=== PATIENT | male | born 1990 | race Caucasian/White ===

== ENCOUNTER → 2016-02-25 | Outpatient (CLI) | payer BC ==
--- NOTE | 2016-02-25 23:53 | MR ---
EXAMINATION TYPE: MR knee LT wo con DATE OF EXAM: 02/25/2016 10:16 PM COMPARISON: NONE HISTORY: TECHNIQUE: Multiplanar, multisequence imaging of the left knee is performed without IV contrast. Findings The anterior and posterior cruciate ligaments are intact. There is a small knee joint effusion. The m edial meniscus is intact. Lateral meniscus is intact. The collateral ligaments are intact. I see no e vidence for fracture. There is no evidence of bony destructive process. IMPRESSION: Small knee joint effusion. Otherwise negative exam. No evidence of ligamentous or meniscal tear.
== END | disposition home or self-care (01) ==
LOC: RADMRIMAIN 21:39
PROVIDERS: ATTEND Family Medicine
DX: M25.462 Effusion, left knee (principal)

== ENCOUNTER 2016-08-30 21:16 | Emergency (ER) | payer BC ==
[2016-08-30] MEDS ORDERED: LORazepam 1 MG TAB PO STA (21:34)
--- NOTE | 2016-08-30 21:44 | ED ---
General Adult HPI - General Chief complaint: Anxiety Stated complaint: Anxiety/MY Time Seen by Provider: 08/30/16 21:22 Source: patient Mode of arrival: wheelchair Limitations: no limitations - History of Present Illness Initial comments: Patient is a 26-year-old male who presents to the emergency department for evaluation of panic attack. Patient states that yesterday he experienced a in the immediate family, he states that it has been a very stressful 2 weeks leading up to this . Patient states he was sleeping this evening, he overslept and was very anxious when he woke up. He then got any small argument with his and began feeling very panicked. Patient states her breathing rate very rapidly and could not slow down his breathing and then felt his heart beating very quickly. Patient states he feels like everything that's been going on his just built up and he can handle it. Patient's brought him to the emergency department for further evaluation. Does state he has had panic attacks in the past but has been able to manage them with breathing. He has never been formally diagnosed with an anxiety disorder. He has never had a psychiatric hospitalization or been on any psychiatric occasions. Patient denies any drug or alcohol use. He denies any cardiac history or family history of early cardiac disease. Denies any history of blood clots, DVT or PE or family history of the same. - Related Data Home Medications Medication Instructions Recorded Confirmed No Known Home Medications [No 08/30/16 08/30/16 Known Home Medications] Allergies Allergy/AdvReac Type Severity Reaction Status Date / Time No Known Allergies Allergy Verified 08/30/16 21:38 Review of Systems ROS Statement: Those systems with pertinent positive or pertinent negative responses have been documented in the HPI. ROS Other: All systems not noted in ROS Statement are negative. Constitutional: Denies: fever, chills Eyes: Denies: vision change Respiratory: Reports: dyspnea, other Cardiovascular: Reports: palpitations. Denies: chest pain Endocrine: Denies: fatigue Gastrointestinal: Reports: nausea. Denies: abdominal pain Musculoskeletal: Denies: back pain Skin: Denies: lesions Neurological: Denies: headache Psychiatric: Reports: anxiety. Denies: auditory hallucinations, visual hallucinations, homicidal thoughts, suicidal thoughts Hematological/Lymphatic: Denies: easy bleeding, easy bruising Past Medical History Past Medical History: No Reported History Additional Past Medical History / Comment(s): abdominal cramping, blood in stool 2 weeks ago, occ loose stools History of Any Multi-Drug Resistant Organisms: None Reported Past Surgical History: No Surgical Hx Reported Past Anesthesia/Blood Transfusion Reactions: No Reported Reaction Past Psychological History: No Psychological Hx Reported Smoking Status: Never smoker - Past Family History Mother Family Medical History: No Reported History General Exam Limitations: no limitations General appearance: alert, anxious Head exam: Present: atraumatic, normocephalic, normal inspection Eye exam: Present: normal appearance, PERRL, EOMI. Absent: scleral icterus, conjunctival injection, periorbital swelling ENT exam: Present: normal exam, mucous membranes moist Neck exam: Present: normal inspection. Absent: tenderness, meningismus, lymphadenopathy Respiratory exam: Present: normal lung sounds bilaterally. Absent: respiratory distress, wheezes, rales, rhonchi, stridor Cardiovascular Exam: Present: regular rate, normal rhythm, normal heart sounds. Absent: systolic murmur, diastolic murmur, rubs, gallop, clicks GI/Abdominal exam: Present: soft, normal bowel sounds. Absent: distended, tenderness, guarding, rebound, rigid Rectal exam: Present: deferred Extremities exam: Present: normal inspection, full ROM, normal capillary refill. Absent: tenderness, pedal edema, joint swelling, calf tenderness Back exam: Present: normal inspection Neurological exam: Present: alert, oriented X3, CN II-XII intact Psychiatric exam: Present: anxious Skin exam: Present: warm, dry, intact, normal color. Absent: rash Course Vital Signs 08/30/16 21:17 Temperature 97.5 F L Pulse Rate 139 H Respiratory 34 H Rate Blood Pressure 148/106 O2 Sat by Pulse 100 Oximetry - Reevaluation(s) Reevaluation #1: 08/30/16 22:38 Patient reevaluated, heart rate noted to be 92-100 while sleeping. I woke the patient and asked him how he is feeling patient's heart rate then increased to 122. I advised the patient to continue slow deep breathing I will reassess. Reevaluation #2: 08/30/16 23:36 She was again reevaluated, patient was noted to be sleeping his heart rate was 90. at bedside states the patient's been sleeping comfortably. Upon hearing or speaking the patient woke and reportedly felt well, denied any chest pain or shortness of breath. While talking was noted that his heart rate increased to 103 but the patient stated that he felt much better. I offered the patient a further workup for his tachycardia, however patient declined and stated that he felt comfortable being discharged home. Medical Decision Making - Medical Decision Making Patient was seen and evaluated, history was obtained from the patient and his Vital signs were reviewed, patient is tachycardic and tachypneic upon initial evaluation Patient's medical history and history of present illness are suggestive of an acute stress reaction or panic attack During my initial evaluation I practiced breathing techniques with the patient to slow his breathing, it was noted the patient's heart rate decreased from the 130s to the 110s with these wreathing techniques. I advised the patient to continue slow controlled breathing, I encouraged his to assist him and counting to maintain slow breathing. Advised patient will give him a oral dose of anxiolytic but that he shall not drive home tonight, it can make him drowsy and he has never taken it before. Patient was reevaluated after by mouth Ativan. Patient was sleeping comfortably in the bed. Upon waking patient again developed tachycardia. Advised the patient we will continue to monitor Patient was reevaluated and noted to have a heart rate of 90 while sleeping. Patient's states he's been sleeping comfortably and she feels is likely ready to go home. I woke the patient states he is feeling much better, denies any chest pain, palpitations, shortness of breath. I offer the patient a further workup for his tachycardia however he states he feels this was all related to his anxiety and he feels comfortable going home now. I advised the patient he should not work tonight as he took Ativan which can cause drowsiness. Patient is agreeable. Questions pertaining to care were answered to the best of my ability and patient was discharged home in stable condition. Disposition Clinical Impression: Acute anxiety, Hyperventilation, Panic attack, Acute stress reaction Disposition: HOME SELF-CARE Condition: Good Instructions: Generalized Anxiety Disorder (ED) Referrals: Ryan Dahl MD [Primary Care Provider] - 1-2 days
[2016-08-30 23:39] VITALS: BP 163/84; PULSE 117; RESP 20; TEMP 98
== END 2016-08-30 23:46 | disposition home or self-care (01) ==
LOC: EC 21:16
DX: F41.0 Panic disorder [episodic paroxysmal anxiety] (principal); F43.0 Acute stress reaction; R06.4 Hyperventilation
CPT/HCPCS: 99283

== ENCOUNTER 2016-11-17 11:14 | Inpatient (IN) | payer BC, OTHER ==
[2016-11-17] MEDS ORDERED: SODIUM CHLORIDE 0.9% 2,000 ML IV STA (11:25)
[2016-11-17] MEDS ORDERED: ONDANSETRON 4 MG/2 ML VIAL IVP STA ×2 (11:25→12:31)
[2016-11-17] MEDS ORDERED: MORPHINE SULFATE 4 MG/ML SYRINGE IVP STA (11:32)
[2016-11-17] MEDS ORDERED: HYDROmorphone 1 MG/ML 1 ML SYRINGE IVP STA (11:54)
[2016-11-17 11:57] LABS: Basophils # (A) 0.1 k/uL (0-0.2); Basophils % (A) 0 %; CH 30.7; CHCM 33.6; Eosinophils # (A) 0.1 k/uL (0-0.7); Eosinophils % (A) 1 %; HCT 39.8 % (39.0-53.0); HGB 13.2 gm/dL (13.0-17.5); Luc # (Auto) 0.19; Luc % (Auto) 2; Lymphocytes # (A) 1.8 k/uL (1.0-4.8); Lymphocytes % (A) 15 %; MCH 30.4 pg (25.0-35.0); MCHC 33.2 g/dL (31.0-37.0); MCV 91.7 fL (80.0-100.0); Mean Platelet Volume 7.2; Monocytes # (A) 0.5 k/uL (0-1.0); Monocytes % (A) 4 %; Neutrophils # (A) 9.4 k/uL (1.3-7.7); Neutrophils % (A) 79 %; RBC 4.34 m/uL (4.30-5.90); RDW 12.4 % (11.5-15.5); WBC (Perox) 12.38
--- NOTE | 2016-11-17 12:06 | ED ---
Abdominal Pain HPI - General Chief Complaint: Abdominal Pain Stated Complaint: ABDOMINAL PAIN, VOMITINGW Time Seen by Provider: 11/17/16 11:21 Source: patient, RN notes reviewed Mode of arrival: wheelchair Limitations: no limitations - History of Present Illness Initial Comments: 26-year-old male presents emergency Department with chief complaint of abdominal pain. Patient states that he has been nausea and vomiting with dry heaving all morning. Patient states that he had some onset of left-sided abdominal pain. Patient states probably something snapped. Patient states his pain is nothing is ever experienced in the past. Patient denies any fever, chills, headache or dizziness or chest pain or shortness of breath. Patient states that he's had no prior abdominal surgeries. - Related Data Home Medications Medication Instructions Recorded Confirmed Multivitamins, Thera [Multivitamin 1 tab PO DAILY 11/17/16 11/17/16 (formulary)] Allergies Allergy/AdvReac Type Severity Reaction Status Date / Time No Known Allergies Allergy Verified 11/17/16 11:29 Review of Systems ROS Statement: Those systems with pertinent positive or pertinent negative responses have been documented in the HPI. ROS Other: All systems not noted in ROS Statement are negative. Past Medical History Past Medical History: No Reported History Additional Past Medical History / Comment(s): abdominal cramping, blood in stool 2 weeks ago, occ loose stools History of Any Multi-Drug Resistant Organisms: None Reported Past Surgical History: No Surgical Hx Reported Past Anesthesia/Blood Transfusion Reactions: No Reported Reaction Past Psychological History: No Psychological Hx Reported Smoking Status: Never smoker Past Alcohol Use History: Occasional Past Drug Use History: Unable to Obtain - Past Family History Mother Family Medical History: No Reported History General Exam Limitations: no limitations General appearance: alert, in no apparent distress Head exam: Present: atraumatic, normocephalic, normal inspection Respiratory exam: Present: normal lung sounds bilaterally. Absent: respiratory distress, wheezes, rales, rhonchi, stridor Cardiovascular Exam: Present: regular rate, normal rhythm, normal heart sounds. Absent: systolic murmur, diastolic murmur, rubs, gallop, clicks GI/Abdominal exam: Present: soft, tenderness (moderate left sided abdominal tenderness), normal bowel sounds. Absent: distended, guarding, rebound, rigid Skin exam: Present: warm, dry Course Vital Signs 1011/17/16 11/17/16 11:15 12:01 12:32 Temperature 97.2 F L Pulse Rate 114 H 110 H 121 H Respiratory 18 28 H 20 Rate Blood Pressure 144/90 122/63 123/87 O2 Sat by Pulse 100 100 98 Oximetry 11/17/16 13:56 Temperature Pulse Rate 112 H Respiratory 19 Rate Blood Pressure 128/79 O2 Sat by Pulse 96 Oximetry Medical Decision Making - Medical Decision Making 26-year-old male Presented from for Abdominal Pain. Patient's Pain Is Out Of Proportion He Is Slightly Improved after Ativan and Dilaudid and Morphine. Patient's Lactic Is 8.5. Concerns for Possible Ischemic Bowel, CT Shows Pancolitis in Acute Appendicitis. Patient Will Be Given a Third Liter of Fluid Started on a Maintenance Also 100 Per Hour along with Unasyn. Dr. Johnson Surgeon On-Call for Surgical Was Contacted. - Lab Data Result diagrams: 11/17/16 11:36 11/17/16 11:36 Lab Results 11/17/16 11/17/16 11/17/16 Range/Units 11:36 11:36 12:25 WBC 12.0 H (3.8-10.6) k/uL RBC 4.34 (4.30-5.90) m/uL Hgb 13.2 (13.0-17.5) gm/dL Hct 39.8 (39.0-53.0) % MCV 91.7 (80.0-100.0) fL MCH 30.4 (25.0-35.0) pg MCHC 33.2 (31.0-37.0) g/dL RDW 12.4 (11.5-15.5) % Plt Count 325 (150-450) k/uL Neutrophils % 79 % Lymphocytes % 15 % Monocytes % 4 % Eosinophils % 1 % Basophils % 0 % Neutrophils # 9.4 H (1.3-7.7) k/uL Lymphocytes # 1.8 (1.0-4.8) k/uL Monocytes # 0.5 (0-1.0) k/uL Eosinophils # 0.1 (0-0.7) k/uL Basophils # 0.1 (0-0.2) k/uL Sodium 145 (137-145) mmol/L Potassium 4.0 (3.5-5.1) mmol/L Chloride 106 (98-107) mmol/L Carbon Dioxide 20 L (22-30) mmol/L Anion Gap 19 mmol/L BUN 8 L (9-20) mg/dL Creatinine 0.65 L (0.66-1.25) mg/dL Est GFR (MDRD) Af Amer >60 (>60 ml/min/1.73 sqM) Est GFR (MDRD) Non-Af >60 (>60 ml/min/1.73 sqM) Glucose 150 H (74-99) mg/dL Plasma Lactic Acid Omar (0.7-2.0) mmol/L Calcium 10.8 H (8.4-10.2) mg/dL Total Bilirubin 0.4 (0.2-1.3) mg/dL AST 30 (17-59) U/L ALT 39 (21-72) U/L Alkaline Phosphatase 58 (38-126) U/L Total Protein 7.6 (6.3-8.2) g/dL Albumin 5.1 H (3.5-5.0) g/dL Amylase 47 (30-110) U/L Lipase 94 (23-300) U/L Urine Color Yellow Urine Appearance Turbid (Clear) Urine pH 7.5 (5.0-8.0) Ur Specific [place] 1.017 (1.001-1.035) Urine Protein Negative (Negative) Urine Glucose (UA) Negative (Negative) Urine Ketones 1+ H (Negative) Urine Blood Negative (Negative) Urine Nitrite Negative (Negative) Urine Bilirubin Negative (Negative) Urine Urobilinogen <2.0 (<2.0) mg/dL Ur Leukocyte Esterase Negative (Negative) Amorphous Sediment Occasional H (None) /hpf Urine Mucus Rare H (None) /hpf 11/17/16 Range/Units 13:15 WBC (3.8-10.6) k/uL RBC (4.30-5.90) m/uL Hgb (13.0-17.5) gm/dL Hct (39.0-53.0) % MCV (80.0-100.0) fL MCH (25.0-35.0) pg MCHC (31.0-37.0) g/dL RDW (11.5-15.5) % Plt Count (150-450) k/uL Neutrophils % % Lymphocytes % % Monocytes % % Eosinophils % % Basophils % % Neutrophils # (1.3-7.7) k/uL Lymphocytes # (1.0-4.8) k/uL Monocytes # (0-1.0) k/uL Eosinophils # (0-0.7) k/uL Basophils # (0-0.2) k/uL Sodium (137-145) mmol/L Potassium (3.5-5.1) mmol/L Chloride (98-107) mmol/L Carbon Dioxide (22-30) mmol/L Anion Gap mmol/L BUN (9-20) mg/dL Creatinine (0.66-1.25) mg/dL Est GFR (MDRD) Af Amer (>60 ml/min/1.73 sqM) Est GFR (MDRD) Non-Af (>60 ml/min/1.73 sqM) Glucose (74-99) mg/dL Plasma Lactic Acid Omar 8.5 H* (0.7-2.0) mmol/L Calcium (8.4-10.2) mg/dL Total Bilirubin (0.2-1.3) mg/dL AST (17-59) U/L ALT (21-72) U/L Alkaline Phosphatase (38-126) U/L Total Protein (6.3-8.2) g/dL Albumin (3.5-5.0) g/dL Amylase (30-110) U/L Lipase (23-300) U/L Urine Color Urine Appearance (Clear) Urine pH (5.0-8.0) Ur Specific [place] (1.001-1.035) Urine Protein (Negative) Urine Glucose (UA) (Negative) Urine Ketones (Negative) Urine Blood (Negative) Urine Nitrite (Negative) Urine Bilirubin (Negative) Urine Urobilinogen (<2.0) mg/dL Ur Leukocyte Esterase (Negative) Amorphous Sediment (None) /hpf Urine Mucus (None) /hpf Disposition Clinical Impression: Pancolitis, Appendicitis, Lactic acidosis Disposition: ADMITTED IP TO THIS [facility] Condition: Fair Referrals: Ryan Dahl MD [Primary Care Provider] - 1-2 days
[2016-11-17 12:16] LABS: AST 30 U/L (17-59); Alkaline Phosphatase 58 U/L (38-126); Amylase 47 U/L (30-110); Anion Gap 19 mmol/L; Blood Urea Nitrogen 8 mg/dL (9-20); Calcium 10.8 mg/dL (8.4-10.2); Carbon Dioxide 20 mmol/L (22-30); Chloride 106 mmol/L (98-107); Glucose 150 mg/dL (74-99); Non-African American GFR(MDRD) >60 (>60 ml/min/1.73 sqM); Sodium 145 mmol/L (137-145); Total Bilirubin 0.4 mg/dL (0.2-1.3); Total Protein 7.6 g/dL (6.3-8.2)
[2016-11-17 12:21] LABS: ALT 39 U/L (21-72)
--- NOTE | 2016-11-17 12:22 | XR ---
EXAMINATION TYPE: XR KUB DATE OF EXAM: 11/17/2016 12:10 PM CLINICAL HISTORY: Left lower quadrant pain and nausea. TECHNIQUE: Single upright abdominal radiograph was obtained. COMPARISON: None. FINDINGS: Scattered gas is seen in non-distended small bowel loops. No differential air-fluid levels are seen. Few loops of nonenlarged small bowel better gaseous filled are localized to the left lower quadrant. Gas and fecal material is seen in non-distended colon. There is no visceromegaly, pneumoper itoneum, or abnormal calcification appreciated. The lung bases are clear and the osseous structures a re intact. IMPRESSION: Nonobstructive bowel gas pattern with few loops of air-filled nondilated small bowel in t he left lower quadrant.
[2016-11-17] MEDS ORDERED: RX INFO: IV CONTRAST WAS GIVEN 1 EACH MISC MISCELLANE PRN (12:31)
[2016-11-17] MEDS ORDERED: LORazepam 2 MG/ML INJ IV STA (12:42)
[2016-11-17 13:01] LABS: Amorphous Sediment,Urine Occasional /hpf; Appearance,Urine Turbid (Clear); Bilirubin,Urine Negative (Negative); Glucose,Urine (UA) Negative (Negative); Ketones,Urine 1+ (Negative); Leukocyte Esterase,Urine Negative (Negative); Mucus,Urine Rare /hpf; Nitrite,Urine Negative (Negative); PH, Urine 7.5 (5.0-8.0); Particle Count 44834; Protein,Urine Negative (Negative); Specific Gravity,Urine 1.017 (1.001-1.035); UA Billing (MACRO vs. MICRO) MICRO; Urobilinogen,Urine <2.0 mg/dL (<2.0)
--- NOTE | 2016-11-17 13:48 | CT ---
EXAMINATION TYPE: CT abdomen pelvis w con DATE OF EXAM: 11/17/2016 COMPARISON: NONE HISTORY: CT DLP: mGycm Automated exposure control for dose reduction was used. TECHNIQUE: Helical acquisition of images was performed from the lung bases through the pelvis. CONTRAST: Performed and , patient injected with mL of . FINDINGS: LUNG BASES: No significant abnormality is appreciated. LIVER/GB: No significant abnormality is appreciated. PANCREAS: No significant abnormality is seen. SPLEEN: No significant abnormality is seen. ADRENALS: No significant abnormality is seen. KIDNEYS: No significant abnormality is seen. FREE AIR: No free air is visualized. RETROPERITONEAL ADENOPATHY: None visualized REPRODUCTIVE ORGANS: No significant abnormality is seen URINARY BLADDER: No significant abnormality is seen. PELVIC ADENOPATHY: None visualized. OSSEOUS STRUCTURES: No significant abnormality is seen. BOWEL: What appears to be the appendix is dilated, hyperemic, and enlarged within its mid and distal portions although the proximal portion is not enlarged and air-filled. This is seen on coronal serie s 5 image 31 connecting to the proximal appendix on series 5 image 33 and 32. This is also seen on ax ial series 3 image 51 through 59 within the right lower quadrant. Additionally although the large bow el is nondistended there are mild pericolonic inflammatory fat stranding changes and evidence of diff use chronic wall thickening with lack of haustral markings, lack of stool, and lack of air favoring s uperimposed mild pancolitis involving all but portions of the sigmoid colon. Findings could represent infectious or inflammatory bowel disease. No evidence of periappendiceal abscess or free fluid is se en. No pneumoperitoneum is present. IMPRESSION: FINDINGS FAVORING ACUTE APPENDICITIS SUPERIMPOSED UPON PANCOLITIS. WHAT IS THOUGHT TO BE OF THE APPEN ALLEGRA APPEARS TO BE A BLIND-ENDING LOOP RATHER THAN THE TERMINAL ILEUM. ALTERNATIVELY THIS COULD REPRES ENT TERMINAL ILEITIS AND PANCOLITIS IN THE SETTING OF INFLAMMATORY BOWEL DISEASE. CORRELATE WITH PHYS ICAL EXAM AND CLINICAL SYMPTOMATOLOGY. SHORT-TERM FOLLOW-UP COULD ALSO BE PERFORMED IF CLINICAL EXAMI NATION IS A CLINICAL. NO CURRENT PNEUMOPERITONEUM OR RIGHT LOWER QUADRANT ABSCESS. Findings discussed with Dr. Mora by Dr. Price at 1340 ON 11/17/2016.
[2016-11-17] MEDS ORDERED: SODIUM CHLORIDE 0.9% 1,000 ML IV ONE (13:55)
[2016-11-17] MEDS ORDERED: AMPICILLIN-SULBACTAM 3 GM in SODIUM CHLORIDE 0.9% 100 ML IVPB STA (13:58)
[2016-11-17] MEDS ORDERED: SODIUM CHLORIDE 0.9% 1,000 ML IV SCH (14:00)
[2016-11-17] MEDS ORDERED: LORazepam 2 MG/ML INJ IV PRN (14:02)
[2016-11-17] MEDS ORDERED: NALOXONE 0.4 MG/ML 1 ML VIAL IV PRN (14:02)
[2016-11-17] MEDS ORDERED: HYDROmorphone 1 MG/ML 1 ML SYRINGE IVP PRN (14:02)
[2016-11-17] MEDS ORDERED: ONDANSETRON 4 MG/2 ML VIAL IVP PRN (14:02)
[2016-11-17] MEDS ORDERED: LACTATED RINGERS 1,000 ML IV ONE (14:21)
[2016-11-17] MEDS ORDERED: metroNIDAZOLE-NS PMX 500 MG in SALINE 1 100ML.BAG IVPB SCH (14:30)
--- NOTE | 2016-11-17 14:37 | P.GSCN ---
History of Present Illness Consult date: 11/17/16 Reason for Consult: Abdominal pain Requesting physician: Ryan Livingston History of present illness: 26 yrs old male presents with acute onset of pain in LUQ , sharp ciontinuous starting 11 am this morning. Multiple episodes of non -bloody vomitus containing food. Normal BM this am. Known chronic diarrhea . Last colonoscopy in Feb [address] Martin - biopsy all normal. No fever, chils, rigors. Leblanc has now subsided to 06/22. No family h/o chron's disease or ulcerative colitis Past Medical History Past Medical History: No Reported History Additional Past Medical History / Comment(s): abdominal cramping, blood in stool 2 weeks ago, occ loose stools History of Any Multi-Drug Resistant Organisms: None Reported Past Surgical History: No Surgical Hx Reported Past Anesthesia/Blood Transfusion Reactions: No Reported Reaction Past Psychological History: No Psychological Hx Reported Smoking Status: Never smoker Past Alcohol Use History: Occasional Past Drug Use History: Unable to Obtain - Past Family History Mother Family Medical History: No Reported History Medications and Allergies Home Medications Medication Instructions Recorded Confirmed Type Multivitamins, Thera [Multivitamin 1 tab PO DAILY 11/17/16 11/17/16 History (formulary)] Amoxic-Pot Clav 500-125 mg 1 tab PO Q12HR #10 tab 11/18/16 Rx [Augmentin 500-125 mg] Allergies Allergy/AdvReac Type Severity Reaction Status Date / Time No Known Allergies Allergy Verified 11/17/16 16:40 Surgical - Exam Vital Signs Temp Pulse Resp BP Pulse Ox 97.2 F L 114 H 18 144/90 100 11/17/16 11:15 11/17/16 11:15 11/17/16 11:15 11/17/16 11:15 11/17/16 11:15 General: Patient is alert and oriented to time, place and person and cooperative with exam. He is in acute distress. HEENT: No pallor, no icterus Chest: Bilateral equal breath sounds present. No wheezes, no crackles. Cardiovascular: Regular rate and rhythm. Abdomen: Localized tenderness in left upper quadrant Integumentary: No active ulcers or discharge. Neurologic: Cranial nerves II-XII intact. Strength upper and lower extremities 5/5. No focal neurologic deficits. Gait is normal. Psychiatric: No anxiety or psychosis. Results - Labs 10/05/17 22:53 11/17/16 22:53 Abnormal Lab Results - Last 24 Hours (Table) 11/17/16 11/17/16 11/17/16 Range/Units 11:36 11:36 12:25 WBC 12.0 H (3.8-10.6) k/uL Neutrophils # 9.4 H (1.3-7.7) k/uL Carbon Dioxide 20 L (22-30) mmol/L BUN 8 L (9-20) mg/dL Creatinine 0.65 L (0.66-1.25) mg/dL Glucose 150 H (74-99) mg/dL Plasma Lactic Acid Omar (0.7-2.0) mmol/L Calcium 10.8 H (8.4-10.2) mg/dL Albumin 5.1 H (3.5-5.0) g/dL Urine Ketones 1+ H (Negative) Amorphous Sediment Occasional H (None) /hpf Urine Mucus Rare H (None) /hpf 11/17/16 Range/Units 13:15 WBC (3.8-10.6) k/uL Neutrophils # (1.3-7.7) k/uL Carbon Dioxide (22-30) mmol/L BUN (9-20) mg/dL Creatinine (0.66-1.25) mg/dL Glucose (74-99) mg/dL Plasma Lactic Acid Omar 8.5 H* (0.7-2.0) mmol/L Calcium (8.4-10.2) mg/dL Albumin (3.5-5.0) g/dL Urine Ketones (Negative) Amorphous Sediment (None) /hpf Urine Mucus (None) /hpf Diabetes panel 11/17/16 Range/Units 11:36 Sodium 145 (137-145) mmol/L Potassium 4.0 (3.5-5.1) mmol/L Chloride 106 (98-107) mmol/L Carbon Dioxide 20 L (22-30) mmol/L BUN 8 L (9-20) mg/dL Creatinine 0.65 L (0.66-1.25) mg/dL Glucose 150 H (74-99) mg/dL Calcium 10.8 H (8.4-10.2) mg/dL AST 30 (17-59) U/L ALT 39 (21-72) U/L Alkaline Phosphatase 58 (38-126) U/L Total Protein 7.6 (6.3-8.2) g/dL Albumin 5.1 H (3.5-5.0) g/dL Calcium panel 11/17/16 Range/Units 11:36 Calcium 10.8 H (8.4-10.2) mg/dL Albumin 5.1 H (3.5-5.0) g/dL Pituitary panel 11/17/16 Range/Units 11:36 Sodium 145 (137-145) mmol/L Potassium 4.0 (3.5-5.1) mmol/L Chloride 106 (98-107) mmol/L Carbon Dioxide 20 L (22-30) mmol/L BUN 8 L (9-20) mg/dL Creatinine 0.65 L (0.66-1.25) mg/dL Glucose 150 H (74-99) mg/dL Calcium 10.8 H (8.4-10.2) mg/dL Adrenal panel 11/17/16 Range/Units 11:36 Sodium 145 (137-145) mmol/L Potassium 4.0 (3.5-5.1) mmol/L Chloride 106 (98-107) mmol/L Carbon Dioxide 20 L (22-30) mmol/L BUN 8 L (9-20) mg/dL Creatinine 0.65 L (0.66-1.25) mg/dL Glucose 150 H (74-99) mg/dL Calcium 10.8 H (8.4-10.2) mg/dL Total Bilirubin 0.4 (0.2-1.3) mg/dL AST 30 (17-59) U/L ALT 39 (21-72) U/L Alkaline Phosphatase 58 (38-126) U/L Total Protein 7.6 (6.3-8.2) g/dL Albumin 5.1 H (3.5-5.0) g/dL - Imaging Additional studies: CT abdomen pelvis : Images reviewed with Dr. Price. Diffuse colon wall thickening without anys tool in the feces. Some adjacent fat stranding. Questionable enlarged appendix . Assessment and Plan (1) Appendicitis Status: Acute (2) Lactic acidosis Status: Acute Plan: 1. LUQ pain 2. Leucocytosis and lactic acidosis . IV hydration- 1000ml IVcrystalloid bolus 3. Repeat CBC, lytes and lactate this pm 4. Abdominal pain etiology is unclear. Clinical exam does not correlate with acute appendictis . Pain is localized in LUQ and no peritonitis . 5. IV abs- Levoquin and Flagyl 6. Repeat CT scan with contrast in am 7. If no improvement, may need diagnostic laparoscopy 8. In patient admission 9. Recommend GI consult - known patient of Dr. Martin
[2016-11-17 16:18] VITALS: RESP 16
[2016-11-17 16:54] VITALS: BMI 24.2
[2016-11-17] MEDS ORDERED: LEVOFLOXACIN 750MG-D5W PMX 750 MG in DEXTROSE/WATER 1 150ML.BAG IVPB SCH (18:00)
[2016-11-17] MEDS ORDERED: ENOXAPARIN 40 MG/0.4 ML SYRINGE SQ SCH (18:00)
--- NOTE | 2016-11-17 19:04 | HP ---
HISTORY AND PHYSICAL DATE OF ADMISSION: 11/17/16. PRESENT COMPLAINT: Abdominal pain. HISTORY OF PRESENTING COMPLAINT: A very pleasant 26-year-old patient of Dr. Dahl who this morning started with vomiting times two. Developed severe abdominal pain. Had 2 bowel movements. No regular. No fever just tired and run down. The patient about 2 years ago had a about a month of diarrhea and then went on and no clear diagnosis was found. Nobody else was sick around the house. REVIEW OF SYSTEMS: Constitutional: Tired. HEENT: None. Respiratory: None. Cardiovascular: None. Gastrointestinal as above. none. Musculoskeletal none. Dermatologic: None. Hematologic none. Lymphatics none. Psychiatry: None. Neurological: None. PAST MEDICAL HISTORY: None. PAST SURGICAL HISTORY: None. SOCIAL HISTORY: Social history drinks beer occasionally. Does not smoke. Works at as a distributor. . FAMILY HISTORY: Reviewed noncontributory to presentation. MEDICATIONS: Home medications multivitamins. ALLERGIES: None. PHYSICAL EXAMINATION: Temperature 97.2, pulse 114, respiratory rate 18, blood pressure 140/98, pulse ox 100% on room air. GENERAL: Average built, lying in bed, tired appearing. Eyes pupils equal. Conjunctivae normal. HEENT: Oral cavity normal. NECK: JVD not raised. Mass not palpable. Respiratory effort lungs are clear. Cardiovascular first and second sounds no edema. ABDOMEN: Soft, rather significant tenderness in upper and the left side of the abdomen. Minimal guarding. No rigidity. Soft. Bowel sounds are present. LYMPHATICS: No lymph nodes palpable in the neck and axilla. Psychiatry: Alert and oriented times three. Mood and affect normal. Neurological: Pupils equal. Cranial nerves grossly intact. Power and sensation grossly intact. INVESTIGATIONS: White count 12, hemoglobin 13.2, potassium 4.0, lactic acid 8.5, CT scan of the abdomen bowel shows diffuse chronic wall thickening. ASSESSMENT: 1. Acute colitis in a significant portion of the colon. This well could be underlying inflammatory bowel disease. The patient had similar bout about 2 years ago. Otherwise patient states he is in good health. At the same time need to rule out an infectious cause. 2. Acute lactic acidosis with no sepsis. PLAN: We will consult Gastroenterology. The patient is on IV antibiotics including Levaquin and Flagyl, IV fluids. We will give the patient some ice chips. Care was discussed with the patient. Repeat labs in the morning. Copy Dr. Dahl. MMZEVL / IGGYN: [id number] /
[2016-11-17] MEDS: PIPERACILLIN-TAZOBACTAM 3.375 GM in DEXTROSE/WATER 1 50ML.BAG IVPB SCH (20:14)
[2016-11-17 23:07] LABS: Basophils % (A) 0 %; CH 30.8; CHCM 32.8; Eosinophils # (A) 0.2 k/uL (0-0.7); Eosinophils % (A) 2 %; HCT 32.5 % (39.0-53.0); HDW 2.27; HGB 10.7 gm/dL (13.0-17.5); Luc # (Auto) 0.06; Luc % (Auto) 1; Lymphocytes # (A) 0.7 k/uL (1.0-4.8); Lymphocytes % (A) 9 %; MCHC 32.9 g/dL (31.0-37.0); MCV 94.3 fL (80.0-100.0); Mean Platelet Volume 7.4; Monocytes # (A) 0.3 k/uL (0-1.0); Monocytes % (A) 4 %; Neutrophils # (A) 6.4 k/uL (1.3-7.7); Neutrophils % (A) 84 %; RBC 3.45 m/uL (4.30-5.90); RDW 12.7 % (11.5-15.5); WBC 7.7 k/uL (3.8-10.6); WBC (Perox) 8.18
[2016-11-17 23:18] LABS: ALT 35 U/L (21-72); AST 23 U/L (17-59); Alkaline Phosphatase 43 U/L (38-126); Anion Gap 9 mmol/L; Blood Urea Nitrogen 5 mg/dL (9-20); Calcium 9.4 mg/dL (8.4-10.2); Carbon Dioxide 28 mmol/L (22-30); Chloride 103 mmol/L (98-107); Glucose 119 mg/dL (74-99); Non-African American GFR(MDRD) >60 (>60 ml/min/1.73 sqM); Potassium 3.9 mmol/L (3.5-5.1); Sodium 140 mmol/L (137-145); Total Bilirubin 0.4 mg/dL (0.2-1.3); Total Protein 5.9 g/dL (6.3-8.2)
[2016-11-18] MEDS ORDERED: diphenhydrAMINE 50 MG/ML 1 ML VIAL IVP PRN (00:15)
[2016-11-18] MEDS: ACETAMINOPHEN IV (For NPO) 1,000 MG in EMPTY BAG 1 BAG IVPB SCH ×3 (00:56→12:11)
[2016-11-18] MEDS: PIPERACILLIN-TAZOBACTAM 3.375 GM in DEXTROSE/WATER 1 50ML.BAG IVPB SCH ×2 (05:11→13:42)
[2016-11-18] MEDS ORDERED: RX INFO: IV CONTRAST WAS GIVEN 1 EACH MISC MISCELLANE PRN (06:00)
[2016-11-18] MEDS ORDERED: IOHEXOL 350 MG/ML 25 ML BOTTLE (ORAL USE) PO PRN (07:00)
[2016-11-18] MEDS ORDERED: BARIUM SULFATE 450 ML ORAL.SUSP BOTTLE PO ONE (09:45)
--- NOTE | 2016-11-18 11:52 | P.PN ---
Subjective Progress Note Date: 11/18/16 26-year-old male seen and examined at bedside patient has been up ambulating states left lower quadrant abdominal pain has resolved states he's anxious to be discharged. Patient states his left-sided abdominal pain that came on suddenly he feels that it is related to eating a whole pizza by himself. Patient states he has been on a low carb low-fat diet for several months has lost intentionally 30 pounds and has not eaten that type of food since being on the diet. Patient states it seems like the diet cause the abdominal discomfort. Patient stated a year ago he did undergo an elective colonoscopy for part of workup when he was experiencing chronic diarrhea. He states he underwent a colonoscopy with biopsy was told there was no evidence of colitis. He states after being on this new diet he has not experienced any frequent stooling.. Patient was seen by surgical service for workup for a left upper quadrant pain at the request of the attending. Dr. Johnson did review the computed tomography scan of the abdomen and pelvis. feels that there is no evidence of an acute appendicitis at this time Objective - Vital Signs Vital signs: Vital Signs Temp 98.9 F 11/18/16 07:00 Pulse 99 11/18/16 07:00 Resp 16 11/18/16 07:00 BP 124/84 11/18/16 07:00 Pulse Ox 97 11/18/16 07:00 Intake & Output 11/17/16 11/18/16 11/18/16 18:59 06:59 18:59 Intake Total 1600 Balance 1600 Weight 64 kg Intake: Intake, IV Titration 1600 Amount Sodium Chloride 0.9% 1, 1600 000 ml @ 100 mls/hr IV . Q10H [facility] Rx#:[id number] Other: Voiding Method Toilet # Voids 3 - Exam GENERAL APPEARANCE: Pleasant 26-year-old male patient is alert, oriented, in no acute distress. VITAL SIGNS: Reviewed HEENT: Head is normocephalic and atraumatic. Pupils are equal and reactive. The nares are patent. Oropharynx is clear without lesions. NECK: Supple without lymphadenopathy. Traches midline. HEART: S1, S2. Regular rate and rhythm. No murmur noted reports no chest pain LUNGS: No crackles or wheezes are heard. On room air adequate air entry no shortness of breath no cough ABDOMEN: Soft, nontender, nondistended with good bowel sounds. No peritoneal signs. No palpable organomegaly or masses. States abdominal pain has resolved no reports of nausea vomiting no frequent stooling EXTREMITIES: Normal skin color and turgor. No cyanosis, rash, ulceration, clubbing or edema. Radial pedal pulses are 2/4 bilaterally. NEUROLOGICAL: No focal deficits. Strength and sensation are grossly intact. - Labs CBC & Chem 7: 11/17/16 22:53 11/17/16 22:53 Labs: Abnormal Lab Results - Last 24 Hours (Table) 11/17/16 11/17/16 11/17/16 Range/Units 11:36 11:36 12:25 WBC 12.0 H (3.8-10.6) k/uL RBC (4.30-5.90) m/uL Hgb (13.0-17.5) gm/dL Hct (39.0-53.0) % Neutrophils # 9.4 H (1.3-7.7) k/uL Lymphocytes # (1.0-4.8) k/uL Carbon Dioxide 20 L (22-30) mmol/L BUN 8 L (9-20) mg/dL Creatinine 0.65 L (0.66-1.25) mg/dL Glucose 150 H (74-99) mg/dL Plasma Lactic Acid Omar (0.7-2.0) mmol/L Calcium 10.8 H (8.4-10.2) mg/dL Total Protein (6.3-8.2) g/dL Albumin 5.1 H (3.5-5.0) g/dL Urine Ketones 1+ H (Negative) Amorphous Sediment Occasional H (None) /hpf Urine Mucus Rare H (None) /hpf 11/17/16 11/17/16 11/17/16 Range/Units 13:15 17:06 22:53 WBC (3.8-10.6) k/uL RBC 3.45 L (4.30-5.90) m/uL Hgb 10.7 L (13.0-17.5) gm/dL Hct 32.5 L (39.0-53.0) % Neutrophils # (1.3-7.7) k/uL Lymphocytes # 0.7 L (1.0-4.8) k/uL Carbon Dioxide (22-30) mmol/L BUN (9-20) mg/dL Creatinine (0.66-1.25) mg/dL Glucose (74-99) mg/dL Plasma Lactic Acid Omar 8.5 H* 4.4 H* (0.7-2.0) mmol/L Calcium (8.4-10.2) mg/dL Total Protein (6.3-8.2) g/dL Albumin (3.5-5.0) g/dL Urine Ketones (Negative) Amorphous Sediment (None) /hpf Urine Mucus (None) /hpf 11/17/16 11/17/16 Range/Units 22:53 22:53 WBC (3.8-10.6) k/uL RBC (4.30-5.90) m/uL Hgb (13.0-17.5) gm/dL Hct (39.0-53.0) % Neutrophils # (1.3-7.7) k/uL Lymphocytes # (1.0-4.8) k/uL Carbon Dioxide (22-30) mmol/L BUN 5 L (9-20) mg/dL Creatinine 0.50 L (0.66-1.25) mg/dL Glucose 119 H (74-99) mg/dL Plasma Lactic Acid Omar 3.0 H* (0.7-2.0) mmol/L Calcium (8.4-10.2) mg/dL Total Protein 5.9 L (6.3-8.2) g/dL Albumin (3.5-5.0) g/dL Urine Ketones (Negative) Amorphous Sediment (None) /hpf Urine Mucus (None) /hpf Assessment and Plan Plan: Impression Present on admission left lower quadrant abdominal pain unclear etiology Present on admission leukocytosis suspect reactive Colonoscopy February 2015 with biopsies as part of a workup for chronic diarrhea showed no acute findings no evidence of colitis Plan No evidence of an acute surgical abdomen at this time No recommendations for a surgical intervention at this time We'll sign off and re-eval as indicated From a surgical perspective patient could be discharged defer to the timing of the discharge to medicine service Await GIs workup pending Would recommend patient follow-up with Dr. Luciana Gutierrez within 2 weeks in the outpatient setting this was discussed with the patient and the patient's spouse The above impression and plan of care have been discussed and directed by signing physician. Carol Ruelas nurse practitioner acting as scribe for signing physician.
--- NOTE | 2016-11-18 12:08 | P.CONS ---
History of Present Illness - Reason for Consult Consult date: 11/18/16 Colitis Requesting physician: Segundo Puga - History of Present Illness 26-year-old male presents with acute onset of left upper quadrant abdominal pain nausea vomiting that started Monday. Denies hematemesis hematochezia melena. He has a history of chronic diarrhea; colonoscopy [address] Martin within normal limits biopsies normal. No personal familial history of inflammatory bowel disease. Denies fever chills weight gain or weight loss. She has been maintained on a strict low carb diet for the last 10 weeks and ate a whole frozen 3 meat pizza on Monday night. Shortly thereafter he developed symptoms of abdominal pain nausea vomiting. Upon arrival to the hospital he had a few mucoid loose bowel movements. Presently feels better. Diarrhea has subsided. Pain is improved. CT abdomen and pelvis reported findings favoring acute appendicitis with superimposed pancolitis. Inflammatory bowel disease cannot be excluded. Patient has been evaluated by general surgery at this time surgical intervention is not planned. Since admission he has been afebrile. White count 12 presently 7.7. Hemoglobin 10.7. Platelet 248. Lactic acid 8.5 with hydration presently 1.7. LFTs within normal limits. Lipase 94. BUN 5. Creatinine 0.5. Receiving Zosyn. Review of Systems Constitutional: Denies fever, chills, sweats, weight gain, or loss. HEENT: Negative for migraines, blurred vision or loss, earaches, drainage, tinnitus, oral mucosal lesions, dysphagia, or odynophagia. Cardiac: Negative for chest pain, arrhythmias, or palpitation. Respiratory: Negative for shortness of breath, hemoptysis, cough, or sputum production. Gastrointestinal: See HPI for pertinent findings. Genitourinary: Negative for hematuria, urgency, frequency, polyuria, dysuria, or penile discharge. Musculoskeletal: Negative for muscle aches, swelling, arthritis, and arthralgias. Neurologic: Negative for stroke or TIA. Endocrine: Negative for thyroid problems. Skin: Negative for rash or itching. Psychiatric: Anxiety. All systems: negative (See HPI) Past Medical History Past Medical History: GI Bleed Additional Past Medical History / Comment(s): abdominal cramping, blood in stool 2 YEARS ago, occ loose stools, QUESTIONABLE HAIRLINE FRACTURE RIGHT HI History of Any Multi-Drug Resistant Organisms: None Reported Past Surgical History: No Surgical Hx Reported Past Anesthesia/Blood Transfusion Reactions: No Reported Reaction Past Psychological History: Anxiety Smoking Status: Never smoker Past Alcohol Use History: Occasional Additional Past Alcohol Use History / Comment(s): "A BEER ONCE IN A WHILE". Past Drug Use History: None Reported - Past Family History Mother Family Medical History: No Reported History Medications and Allergies Home Medications Medication Instructions Recorded Confirmed Type Multivitamins, Thera [Multivitamin 1 tab PO DAILY 11/17/16 11/17/16 History (formulary)] Allergies Allergy/AdvReac Type Severity Reaction Status Date / Time No Known Allergies Allergy Verified 11/17/16 16:40 Physical Exam Vitals: Vital Signs Temp Pulse Pulse Resp BP BP Pulse Ox 11/18/16 02:41 98.4 F 86 16 146/69 95 11/17/16 21:32 97.9 F 102 H 16 119/77 100 11/17/16 16:55 112 H 11/17/16 16:17 98.0 F 112 H 16 121/73 100 11/17/16 15:05 96.9 F L 106 H 22 135/76 99 11/17/16 13:56 112 H 19 128/79 96 11/17/16 12:32 121 H 20 123/87 98 11/17/16 12:01 110 H 28 H 122/63 100 11/17/16 11:15 97.2 F L 114 H 18 144/90 100 Intake and Output 11/17/16 11/18/16 11/18/16 22:59 06:59 14:59 Intake Total 800 800 Balance 800 800 Intake: Intake, IV Titration 800 800 Amount Sodium Chloride 0.9% 1, 800 800 000 ml @ 100 mls/hr IV . Q10H [facility] Rx#:[id number] Other: # Voids 3 Weight 64 kg General appearance: The patient is alert, oriented, in no acute distress. HET: Head is normocephalic and atraumatic. Pupils are equal and reactive. Oropharynx is clear without lesions. Neck: Supple without lymphadenopathy. Trachea midline. Heart: S1 S2. Regular rate and rhythm. Lungs: No crackles or wheezes are heard. Abdomen: Soft, nontender, nondistended with bowel sounds. No peritoneal signs. No palpable organomegaly or masses. Extremities: Normal skin color and turgor. No cyanosis, rash, ulceration, clubbing, or edema. Radial and pedal pulses are 2/4 bilaterally. Neurological: No focal deficits. Strength and sensation are grossly intact. Results CBC & Chem 7: 11/17/16 22:53 11/17/16 22:53 Labs: Abnormal Lab Results - Last 24 Hours (Table) 11/17/16 11/17/16 11/17/16 Range/Units 11:36 11:36 12:25 WBC 12.0 H (3.8-10.6) k/uL RBC (4.30-5.90) m/uL Hgb (13.0-17.5) gm/dL Hct (39.0-53.0) % Neutrophils # 9.4 H (1.3-7.7) k/uL Lymphocytes # (1.0-4.8) k/uL Carbon Dioxide 20 L (22-30) mmol/L BUN 8 L (9-20) mg/dL Creatinine 0.65 L (0.66-1.25) mg/dL Glucose 150 H (74-99) mg/dL Plasma Lactic Acid Omar (0.7-2.0) mmol/L Calcium 10.8 H (8.4-10.2) mg/dL Total Protein (6.3-8.2) g/dL Albumin 5.1 H (3.5-5.0) g/dL Urine Ketones 1+ H (Negative) Amorphous Sediment Occasional H (None) /hpf Urine Mucus Rare H (None) /hpf 11/17/16 11/17/16 11/17/16 Range/Units 13:15 17:06 22:53 WBC (3.8-10.6) k/uL RBC 3.45 L (4.30-5.90) m/uL Hgb 10.7 L (13.0-17.5) gm/dL Hct 32.5 L (39.0-53.0) % Neutrophils # (1.3-7.7) k/uL Lymphocytes # 0.7 L (1.0-4.8) k/uL Carbon Dioxide (22-30) mmol/L BUN (9-20) mg/dL Creatinine (0.66-1.25) mg/dL Glucose (74-99) mg/dL Plasma Lactic Acid Omar 8.5 H* 4.4 H* (0.7-2.0) mmol/L Calcium (8.4-10.2) mg/dL Total Protein (6.3-8.2) g/dL Albumin (3.5-5.0) g/dL Urine Ketones (Negative) Amorphous Sediment (None) /hpf Urine Mucus (None) /hpf 11/17/16 11/17/16 Range/Units 22:53 22:53 WBC (3.8-10.6) k/uL RBC (4.30-5.90) m/uL Hgb (13.0-17.5) gm/dL Hct (39.0-53.0) % Neutrophils # (1.3-7.7) k/uL Lymphocytes # (1.0-4.8) k/uL Carbon Dioxide (22-30) mmol/L BUN 5 L (9-20) mg/dL Creatinine 0.50 L (0.66-1.25) mg/dL Glucose 119 H (74-99) mg/dL Plasma Lactic Acid Omar 3.0 H* (0.7-2.0) mmol/L Calcium (8.4-10.2) mg/dL Total Protein 5.9 L (6.3-8.2) g/dL Albumin (3.5-5.0) g/dL Urine Ketones (Negative) Amorphous Sediment (None) /hpf Urine Mucus (None) /hpf Assessment and Plan (1) Abdominal pain Narrative/Plan: Suspect gastroenteritis possible change in diet contributed to the onset of his acute symptoms since resolved. Status: Acute Plan: 1. Presently patient is without abdominal pain and requesting diet advancement. General surgery is not planning surgery. Would advise regular diet and observe and if tolerated discharge. Follow-up in office in 1-2 weeks for reevaluation. Avoid processed foods. Thank you for this kind referral and the opportunity to participate in the care of your patient. This consultation was discussed with Dr. Fragoso. The impression and plan of care have been directed as dictated.
[2016-11-18 13:49] VITALS: BP 148/93; PULSE 98; TEMP 98
--- NOTE | 2016-11-19 07:49 | DS ---
DISCHARGE SUMMARY DATE OF ADMISSION: 11/17/16. DATE OF DISCHARGE: 11/18/16. FINAL DIAGNOSES: 1. Acute colitis in the transverse colon. 2. Acute lactic acidosis. CONSULTATION: 1. Dr. Johnson from general surgery. 2. Dr. Fragoso from GI. HOSPITAL COURSE: This patient presents with an acute abdominal pain. CT scan suggestive of colitis. The patient had some loose stools but no blood. The patient is afebrile. White count was up to 12 initially and did come down. Patient had significantly improved with antibiotics. On exam, abdomen is soft. Minimal tenderness. Bowel sounds are present. Patient is very keen to go home. Told to be on an easy diet. DISCHARGE MEDICATION: Augmentin 500/125, 1 tab p.o. q.12, 10 tablets. DIET: Soft. PLAN: Follow up with Dr. Dahl in 2 days, follow with Dr. Bernie Martin on 12/07/2016. Discussion and discharge planning more than 35 minutes. MMODL / IJN: [id number] /
== END 2016-11-18 15:28 | disposition home or self-care (01) | DRG 392 ==
LOC: EC 11:14 → 3SUR 14:39
PROVIDERS: ADMIT Hospitalist; ATTEND Hospitalist
DX: K52.9 Noninfective gastroenteritis and colitis, unspecified (principal); E87.2 Acidosis; D72.829 Elevated white blood cell count, unspecified
CPT/HCPCS: 36415; 74000; 74177; 80053; 81001; 82150; 83605; 83690; 85025; 85652; 86140; 96361; 96365; 96375; 96376; 99285

== ENCOUNTER 2017-03-15 22:47 | Emergency (ER) | payer OTHER ==
[2017-03-15 22:56] VITALS: TEMP 98
[2017-03-15] MEDS ORDERED: ONDANSETRON ODT 4 MG TAB PO STA (23:10)
--- NOTE | 2017-03-15 23:14 | ED ---
Head Injury HPI - General Chief complaint: Head Injury Stated complaint: altered mental Time Seen by Provider: 03/15/17 23:02 Source: patient, family Mode of arrival: ambulatory Limitations: no limitations, altered mental status - History of Present Illness MD Complaint: head injury -: unknown Mechanism of Injury: unsure Location: frontal Loss of Consciousness: unsure Previous Trauma to this Area: No Place: home Radiation: none Quality: dull Consistency: constant Provoking factors: none known Other Injuries: none Associated Symptoms: repetitive questioning, nausea - Related Data Home Medications Medication Instructions Recorded Confirmed Metoprolol Succinate [Toprol XL] 50 mg PO DAILY 03/15/17 03/15/17 Multivitamins, Thera [Multivitamin 1 tab PO DAILY 03/15/17 03/15/17 (formulary)] Allergies/Adverse reactions: Allergies Allergy/AdvReac Type Severity Reaction Status Date / Time No Known Allergies Allergy Verified 03/15/17 23:11 Review of Systems ROS Statement: Those systems with pertinent positive or pertinent negative responses have been documented in the HPI. ROS Other: All systems not noted in ROS Statement are negative. Constitutional: Denies: fever, chills, weakness Eyes: Denies: vision change ENT: Denies: ear pain Respiratory: Denies: cough, dyspnea Cardiovascular: Denies: chest pain Gastrointestinal: Reports: nausea. Denies: abdominal pain, vomiting Genitourinary: Denies: dysuria, hematuria Musculoskeletal: Denies: back pain Neurological: Reports: headache, confusion. Denies: weakness, numbness Hematological/Lymphatic: Denies: easy bleeding Past Medical History Past Medical History: No Reported History Additional Past Medical History / Comment(s): abdominal cramping, blood in stool 2 weeks ago, occ loose stools, concussion History of Any Multi-Drug Resistant Organisms: None Reported Past Surgical History: No Surgical Hx Reported Past Anesthesia/Blood Transfusion Reactions: No Reported Reaction Past Psychological History: No Psychological Hx Reported Smoking Status: Never smoker Past Alcohol Use History: Occasional Past Drug Use History: Unable to Obtain - Past Family History Mother Family Medical History: No Reported History General Exam Limitations: no limitations, altered mental status General appearance: alert, in no apparent distress Head exam: Present: atraumatic, normocephalic Eye exam: Present: normal appearance, PERRL, EOMI. Absent: scleral icterus, conjunctival injection, nystagmus ENT exam: Present: normal oropharynx, TM's normal bilaterally, normal external ear exam Neck exam: Present: normal inspection, full ROM. Absent: tenderness Respiratory exam: Present: normal lung sounds bilaterally. Absent: respiratory distress, wheezes, rales, rhonchi, stridor Cardiovascular Exam: Present: regular rate, normal rhythm, normal heart sounds. Absent: systolic murmur, diastolic murmur, rubs, gallop GI/Abdominal exam: Present: soft. Absent: tenderness, guarding, rebound, mass Extremities exam: Present: normal inspection, normal capillary refill. Absent: pedal edema, calf tenderness Back exam: Absent: CVA tenderness (R), CVA tenderness (L), vertebral tenderness Neurological exam: Present: alert, CN II-XII intact. Absent: oriented X3 ( Patient is oriented to person and place but is not recalling the date), motor sensory deficit Skin exam: Present: warm, dry, intact, normal color. Absent: rash Course Vital Signs 03/15/17 22:52 Temperature 98 F Pulse Rate 105 H Respiratory 20 Rate Blood Pressure 138/91 O2 Sat by Pulse 99 Oximetry Disposition Clinical Impression: Concussion without loss of consciousness Disposition: HOME SELF-CARE Condition: Fair Instructions: Concussion (ED) Referrals: Ryan Dahl MD [Primary Care Provider] - 1-2 days Abhishek Sosa MD [STAFF PHYSICIAN] - 1-2 days
[2017-03-15] MEDS ORDERED: IBUPROFEN 600 MG TAB PO STA (23:33)
--- NOTE | 2017-03-15 23:37 | CT ---
EXAMINATION TYPE: CT brain wo con DATE OF EXAM: 03/15/2017 COMPARISON: NONE HISTORY: AMS CT DLP: 943.80 mGycm. Automated Exposure Control for Dose Reduction was Utilized. TECHNIQUE: CT scan of the head is performed without contrast. FINDINGS: Ventricles and sulci appear normal. There is no mass effect nor midline shift. There is n o sign of intracranial hemorrhage. The calvarium is intact. CONCLUSION: Negative CT scan of the brain.
[2017-03-16 00:02] VITALS: BP 146/70; PULSE 97; RESP 18
== END 2017-03-16 00:02 | disposition home or self-care (01) ==
LOC: EC 22:47
DX: S06.0X0A Concussion without loss of consciousness, initial encounter (principal); R41.82 Altered mental status, unspecified; Z79.899 Other long term (current) drug therapy; X58.XXXA Exposure to other specified factors, initial encounter; Y92.009 Unspecified place in unspecified non-institutional (private) residence as the place of occurrence of the external cause
CPT/HCPCS: 70450; 99283

== ENCOUNTER 2017-05-03 04:17 | Emergency (ER) | payer OTHER ==
[2017-05-03 04:26] VITALS: TEMP 97.8
[2017-05-03] MEDS ORDERED: SODIUM CHLORIDE 0.9% 1,000 ML IV STA ×2 (04:29)
--- NOTE | 2017-05-03 05:08 | XR ---
EXAM: XR Chest, 2 Views CLINICAL HISTORY: ITS.REASON XR Reason: syncope TECHNIQUE: Frontal and lateral views of the chest. COMPARISON: No relevant prior studies available. FINDINGS: Lungs: Unremarkable. No consolidation. Pleural space: Unremarkable. No pneumothorax. Heart: Unremarkable. No cardiomegaly. Mediastinum: Unremarkable. Bones/joints: Unremarkable. IMPRESSION: Normal chest x-rays.
[2017-05-03 05:13] LABS: Albumin 5.1 g/dL (3.5-5.0); Calcium 10.1 mg/dL (8.4-10.2); Potassium 4.1 mmol/L (3.5-5.1); Total Bilirubin 0.3 mg/dL (0.2-1.3); Total Protein 7.8 g/dL (6.3-8.2)
[2017-05-03 05:15] LABS: Creatine Kinase 237 U/L (55-170)
[2017-05-03] MEDS ORDERED: SODIUM CHLORIDE 0.9% 1,000 ML IV ONE ×3 (05:15→08:06)
[2017-05-03 05:19] LABS: INR 1.1 (<1.2); Prothrombin Time 10.8 sec (9.0-12.0)
[2017-05-03 05:24] LABS: HCT 38.9 % (39.0-53.0); HGB 14.1 gm/dL (13.0-17.5); MCH 31.5 pg (25.0-35.0); MCHC 36.3 g/dL (31.0-37.0); MCV 86.8 fL (80.0-100.0); Mean Platelet Volume 7.1; Platelet Count 298 k/uL (150-450); RBC 4.48 m/uL (4.30-5.90); RDW 12.3 % (11.5-15.5); WBC 5.7 k/uL (3.8-10.6)
[2017-05-03 05:28] LABS: Creatine Kinase MB 0.5 ng/mL (0.0-2.4); Troponin I <0.012 ng/mL (0.000-0.034)
--- NOTE | 2017-05-03 05:44 | ED ---
General Adult HPI - General Source: patient, EMS, RN notes reviewed Mode of arrival: EMS <Jorje Sweeney - Last Filed: 05/03/17 06:41> <Telma Perez - Last Filed: 05/03/17 10:52> - General Chief complaint: Syncope Stated complaint: Syncope Time Seen by Provider: 05/03/17 04:21 - History of Present Illness Initial comments: 27-year-old male presents for evaluation of syncopal episode. Patient states he began feeling lightheaded, felt that his blood sugar might be low, went to the kitchen to get some juice, and passed out. There is no injury noted. Patient does not remember all the details surrounding these events. Denies any preceding chest pain or palpitations. Patient has no significant past medical history. He has been on a ketogenic diet, he states that in the past and is on his diet he did become quite ill. Patient denies any alcohol or drugs. Denies any symptoms at the time my evaluation, he is feeling better. (Jorje Sweeney) - Related Data Home Medications Medication Instructions Recorded Confirmed Metoprolol Succinate [Toprol XL] 50 mg PO DAILY 03/15/17 05/03/17 Multivitamins, Thera [Multivitamin 1 tab PO DAILY 03/15/17 05/03/17 (formulary)] Allergies Allergy/AdvReac Type Severity Reaction Status Date / Time No Known Allergies Allergy Verified 05/03/17 07:20 Review of Systems ROS Other: All systems not noted in ROS Statement are negative. <Jorje Sweeney - Last Filed: 05/03/17 06:41> ROS Other: All systems not noted in ROS Statement are negative. <Telma Perez - Last Filed: 05/03/17 10:52> ROS Statement: Those systems with pertinent positive or pertinent negative responses have been documented in the HPI. Past Medical History Past Medical History: No Reported History Additional Past Medical History / Comment(s): abdominal cramping, blood in stool 2 weeks ago, occ loose stools, concussion History of Any Multi-Drug Resistant Organisms: None Reported Past Surgical History: No Surgical Hx Reported Past Anesthesia/Blood Transfusion Reactions: No Reported Reaction Past Psychological History: Anxiety Smoking Status: Never smoker Past Alcohol Use History: Occasional Past Drug Use History: None Reported - Past Family History Mother Family Medical History: No Reported History <Jorje Sweeney - Last Filed: 05/03/17 06:41> General Exam General appearance: alert, in no apparent distress Head exam: Present: atraumatic, normocephalic Eye exam: Present: normal appearance, PERRL, EOMI ENT exam: Present: mucous membranes dry Neck exam: Present: normal inspection. Absent: tenderness, meningismus Respiratory exam: Present: normal lung sounds bilaterally. Absent: respiratory distress, wheezes Cardiovascular Exam: Present: normal rhythm, tachycardia GI/Abdominal exam: Present: soft. Absent: distended, tenderness Extremities exam: Present: normal inspection, normal capillary refill. Absent: pedal edema Back exam: Present: normal inspection, full ROM Neurological exam: Present: alert, oriented X3, CN II-XII intact. Absent: motor sensory deficit Psychiatric exam: Present: normal affect, normal mood Skin exam: Present: warm, dry, intact. Absent: cyanosis, diaphoretic <Jojre Sweeney - Last Filed: 05/03/17 06:41> Course <Jorje Sweeney - Last Filed: 05/03/17 06:41> <Telma Perez - Last Filed: 05/03/17 10:52> Vital Signs 05/03/17 05/03/17 05/03/17 04:22 07:41 10:46 Temperature 97.8 F Pulse Rate 118 H 102 H 98 Respiratory 20 18 16 Rate Blood Pressure 164/106 151/85 147/84 O2 Sat by Pulse 96 100 98 Oximetry Patient is evaluated at term 7:50 AM, his creatinine is 1.30 and his heart rate is ranging from 110-120 when I was talking to him during evaluation, another liter of normal saline ordered and d-dimer is still pending After additional fluids is orthostatic blood pressure improved he is not tachycardic is discharged to follow-up with his family doctor (Telma Perez) - Reevaluation(s) Reevaluation #1: 05/03/17 0700 Case signed out to Dr. Perez at shift change, awaiting laboratory studies and reevaluation. (Jorje Sweeney) EKG Findings - EKG Comments: EKG Findings:: EKG shows sinus tachycardia, possible left atrial enlargement, ventricular rate of 1:15, HI interval 138, castration 90, QTC 459 no signs of acute ischemia. <Jorje Sweeney - Last Filed: 05/03/17 06:41> Medical Decision Making - Lab Data Result diagrams: 05/03/17 04:31 05/03/17 04:31 <Jorje Sweeney - Last Filed: 05/03/17 06:41> - Lab Data Result diagrams: 05/03/17 04:31 05/03/17 04:31 <Telma Perez - Last Filed: 05/03/17 10:52> - Medical Decision Making 27-year-old male presenting with syncopal episode. Patient clinically appears very dehydrated. (Jorje Sweeney) - Lab Data Lab Results 05/03/17 05/03/17 05/03/17 Range/Units 04:31 04:31 04:31 WBC 5.7 (3.8-10.6) k/uL RBC 4.48 (4.30-5.90) m/uL Hgb 14.1 (13.0-17.5) gm/dL Hct 38.9 L (39.0-53.0) % MCV 86.8 (80.0-100.0) fL MCH 31.5 (25.0-35.0) pg MCHC 36.3 (31.0-37.0) g/dL RDW 12.3 (11.5-15.5) % Plt Count 298 (150-450) k/uL Neutrophils % (Manual) 41 % Lymphocytes % (Manual) 51 % Monocytes % (Manual) 6 % Eosinophils % (Manual) 2 % Neutrophils # (Manual) 2.34 (1.3-7.7) k/uL Lymphocytes # (Manual) 2.91 (1.0-4.8) k/uL Monocytes # (Manual) 0.34 (0-1.0) k/uL Eosinophils # (Manual) 0.11 (0-0.7) k/uL Nucleated RBCs 0 (0-0) /100 WBC Manual Slide Review Performed Anisocytosis (manual) Present PT (9.0-12.0) sec INR (<1.2) APTT (22.0-30.0) sec D-Dimer (<0.60) mg/L FEU Sodium 143 (137-145) mmol/L Potassium 4.1 (3.5-5.1) mmol/L Chloride 104 (98-107) mmol/L Carbon Dioxide 22 (22-30) mmol/L Anion Gap 17 mmol/L BUN 16 (9-20) mg/dL Creatinine 1.30 H (0.66-1.25) mg/dL Est GFR (CKD-EPI)AfAm 86 (>60 ml/min/1.73 sqM) Est GFR (CKD-EPI)NonAf 74 (>60 ml/min/1.73 sqM) Glucose 120 H (74-99) mg/dL Calcium 10.1 (8.4-10.2) mg/dL Total Bilirubin 0.3 (0.2-1.3) mg/dL AST 29 (17-59) U/L ALT 29 (21-72) U/L Alkaline Phosphatase 50 (38-126) U/L Total Creatine Kinase 237 H (55-170) U/L CK-MB (CK-2) 0.5 (0.0-2.4) ng/mL CK-MB (CK-2) Rel Index 0.2 Troponin I <0.012 (0.000-0.034) ng/mL Total Protein 7.8 (6.3-8.2) g/dL Albumin 5.1 H (3.5-5.0) g/dL Urine Color Urine Appearance (Clear) Urine pH (5.0-8.0) Ur Specific [place] (1.001-1.035) Urine Protein (Negative) Urine Glucose (UA) (Negative) Urine Ketones (Negative) Urine Blood (Negative) Urine Nitrite (Negative) Urine Bilirubin (Negative) Urine Urobilinogen (<2.0) mg/dL Ur Leukocyte Esterase (Negative) Serum Alcohol 99 mg/dL 05/03/17 05/03/17 05/03/17 Range/Units 04:31 04:31 05:49 WBC (3.8-10.6) k/uL RBC (4.30-5.90) m/uL Hgb (13.0-17.5) gm/dL Hct (39.0-53.0) % MCV (80.0-100.0) fL MCH (25.0-35.0) pg MCHC (31.0-37.0) g/dL RDW (11.5-15.5) % Plt Count (150-450) k/uL Neutrophils % (Manual) % Lymphocytes % (Manual) % Monocytes % (Manual) % Eosinophils % (Manual) % Neutrophils # (Manual) (1.3-7.7) k/uL Lymphocytes # (Manual) (1.0-4.8) k/uL Monocytes # (Manual) (0-1.0) k/uL Eosinophils # (Manual) (0-0.7) k/uL Nucleated RBCs (0-0) /100 WBC Manual Slide Review Anisocytosis (manual) PT 10.8 (9.0-12.0) sec INR 1.1 (<1.2) APTT 25.0 (22.0-30.0) sec D-Dimer 0.17 (<0.60) mg/L FEU Sodium (137-145) mmol/L Potassium (3.5-5.1) mmol/L Chloride (98-107) mmol/L Carbon Dioxide (22-30) mmol/L Anion Gap mmol/L BUN (9-20) mg/dL Creatinine (0.66-1.25) mg/dL Est GFR (CKD-EPI)AfAm (>60 ml/min/1.73 sqM) Est GFR (CKD-EPI)NonAf (>60 ml/min/1.73 sqM) Glucose (74-99) mg/dL Calcium (8.4-10.2) mg/dL Total Bilirubin (0.2-1.3) mg/dL AST (17-59) U/L ALT (21-72) U/L Alkaline Phosphatase (38-126) U/L Total Creatine Kinase (55-170) U/L CK-MB (CK-2) (0.0-2.4) ng/mL CK-MB (CK-2) Rel Index Troponin I (0.000-0.034) ng/mL Total Protein (6.3-8.2) g/dL Albumin (3.5-5.0) g/dL Urine Color Light Yellow Urine Appearance Clear (Clear) Urine pH 6.5 (5.0-8.0) Ur Specific [place] 1.019 (1.001-1.035) Urine Protein Negative (Negative) Urine Glucose (UA) Negative (Negative) Urine Ketones 1+ H (Negative) Urine Blood Negative (Negative) Urine Nitrite Negative (Negative) Urine Bilirubin Negative (Negative) Urine Urobilinogen <2.0 (<2.0) mg/dL Ur Leukocyte Esterase Negative (Negative) Serum Alcohol mg/dL Disposition <CaneloamadouJorje garcia - Last Filed: 05/03/17 06:41> <Telma Perez - Last Filed: 05/03/17 10:52> Clinical Impression: Syncope, Dehydration, Orthostatic hypotension Disposition: HOME SELF-CARE Condition: Good Instructions: Syncope (ED) Referrals: Ryan Dahl MD [Primary Care Provider] - 1-2 days
[2017-05-03 06:10] LABS: Appearance,Urine Clear (Clear); Bilirubin,Urine Negative (Negative); Blood,Urine Negative (Negative); Color,Urine Light Yellow; Glucose,Urine (UA) Negative (Negative); Ketones,Urine 1+ (Negative); Leukocyte Esterase,Urine Negative (Negative); Nitrite,Urine Negative (Negative); PH, Urine 6.5 (5.0-8.0); Protein,Urine Negative (Negative); Specific Gravity,Urine 1.019 (1.001-1.035); Urobilinogen,Urine <2.0 mg/dL (<2.0)
[2017-05-03 07:20] LABS: Anisocytosis (M) Present; Eosinophils # (M) 0.11 k/uL (0-0.7); Lymphocytes # (M) 2.91 k/uL (1.0-4.8); Monocytes # (M) 0.34 k/uL (0-1.0); Neutrophils # (M) 2.34 k/uL (1.3-7.7); Neutrophils % (M) 41 %; Nucleated Red Blood Cells 0 /100 WBC (0-0); Total Cells Counted 100
[2017-05-03 10:47] VITALS: BP 147/84; PULSE 98; RESP 16
== END 2017-05-03 11:05 | disposition home or self-care (01) ==
LOC: EC 04:17
DX: E86.0 Dehydration (principal); I95.1 Orthostatic hypotension; Z79.899 Other long term (current) drug therapy
CPT/HCPCS: 36415; 71046; 80053; 80320; 81003; 82550; 82553; 84484; 85025; 85379; 85610; 85730; 93005; 96360; 96361; 99285

== ENCOUNTER 2018-06-20 07:00 | Emergency (ER) | payer OTHER ==
[2018-06-20 07:07] VITALS: RESP 18; TEMP 98.1
[2018-06-20] MEDS ORDERED: SODIUM CHLORIDE 0.9% 1,000 ML IV STA (07:27)
[2018-06-20] MEDS ORDERED: SODIUM CHLORIDE 0.9% 1,000 ML with MVI, ADULT NO.4 WITH VIT K 10 ML, THIAMINE 100 MG, F... IV ONE ×4 (07:29)
--- NOTE | 2018-06-20 07:34 | ED ---
General Adult HPI - General Chief complaint: Seizure Stated complaint: seizure Time Seen by Provider: 06/20/18 07:05 Source: patient, RN notes reviewed Mode of arrival: ambulatory Limitations: physical limitation - History of Present Illness Initial comments: Patient is a pleasant 28-year-old male presenting to the emergency Department with complaints of possible seizure. Patient states he has been drinking alcohol heavily for the past 4 days. Patient does regret this. Patient states she was talking on the phone with his mother and he became unresponsive for approximately 1 minute. Patient states he did wake up on the ground. Patient believes he may have had a seizure. There is no witness seizure activity. No history of previous seizures. No injury. Patient feels is more likely that he had a seizure and passing out or fell asleep. Patient states he is feeling tense all over. Patient feels he may still be drunk. - Related Data Home Medications Medication Instructions Recorded Confirmed No Known Home Medications 06/20/18 06/20/18 Allergies Allergy/AdvReac Type Severity Reaction Status Date / Time No Known Allergies Allergy Verified 06/20/18 08:03 Review of Systems ROS Statement: Those systems with pertinent positive or pertinent negative responses have been documented in the HPI. ROS Other: All systems not noted in ROS Statement are negative. Constitutional: Denies: fever Eyes: Denies: eye pain ENT: Denies: ear pain Respiratory: Denies: cough Cardiovascular: Denies: chest pain Endocrine: Denies: fatigue Gastrointestinal: Denies: vomiting Genitourinary: Denies: dysuria Musculoskeletal: Denies: back pain Skin: Denies: rash Neurological: Denies: weakness Past Medical History Past Medical History: No Reported History Additional Past Medical History / Comment(s): abdominal cramping, blood in stool 2 weeks ago, occ loose stools, concussion History of Any Multi-Drug Resistant Organisms: None Reported Past Surgical History: No Surgical Hx Reported Past Anesthesia/Blood Transfusion Reactions: No Reported Reaction Past Psychological History: Anxiety Smoking Status: Never smoker Past Alcohol Use History: Heavy, Occasional Past Drug Use History: None Reported - Past Family History Mother Family Medical History: No Reported History General Exam Limitations: physical limitation General appearance: alert, in no apparent distress Head exam: Present: atraumatic Eye exam: Present: normal appearance, PERRL, EOMI, nystagmus ENT exam: Present: normal oropharynx Neck exam: Present: normal inspection. Absent: tenderness Respiratory exam: Present: normal lung sounds bilaterally Cardiovascular Exam: Present: regular rate, normal rhythm GI/Abdominal exam: Present: soft. Absent: distended, tenderness Extremities exam: Present: normal inspection Neurological exam: Present: alert. Absent: motor sensory deficit Expanded Neurological exam: Present: protecting the airway Speech: Present: fluid speech Motor strength exam: RUE: 5, LUE: 5, RLE: 5, LLE: 5 Psychiatric exam: Present: normal affect, normal mood Skin exam: Present: normal color Course Vital Signs 06/20/18 06/20/18 07:02 09:14 Temperature 98.1 F Pulse Rate 110 H 110 H Respiratory 18 18 Rate Blood Pressure 147/95 130/84 O2 Sat by Pulse 98 100 Oximetry EKG Findings - EKG Comments: EKG Findings:: Sinus tachycardia 104. [place] 142. QRS 86. QT 3:30. QTC 433. Normal axis. Normal QRS. No acute ST change. Medical Decision Making - Medical Decision Making Patient reevaluated and resting comfortably in bed. Patient symptom-free at this point. Patient and family updated on results and need for follow-up. Patient states he is going to go to rehab. - Lab Data Result diagrams: 06/20/18 07:25 06/20/18 07:25 Lab Results 06/20/18 06/20/18 06/20/18 Range/Units 07:25 07:25 07:28 WBC 4.4 (3.8-10.6) k/uL RBC 4.80 (4.30-5.90) m/uL Hgb 13.8 (13.0-17.5) gm/dL Hct 41.4 (39.0-53.0) % MCV 86.1 (80.0-100.0) fL MCH 28.7 (25.0-35.0) pg MCHC 33.3 (31.0-37.0) g/dL RDW 13.7 (11.5-15.5) % Plt Count 313 (150-450) k/uL Neutrophils % 37 % Lymphocytes % 47 % Monocytes % 7 % Eosinophils % 4 % Basophils % 1 % Neutrophils # 1.6 (1.3-7.7) k/uL Lymphocytes # 2.1 (1.0-4.8) k/uL Monocytes # 0.3 (0-1.0) k/uL Eosinophils # 0.2 (0-0.7) k/uL Basophils # 0.0 (0-0.2) k/uL Sodium 149 H (137-145) mmol/L Potassium 4.2 (3.5-5.1) mmol/L Chloride 111 H (98-107) mmol/L Carbon Dioxide 30 (22-30) mmol/L Anion Gap 8 mmol/L BUN 7 L (9-20) mg/dL Creatinine 0.72 (0.66-1.25) mg/dL Est GFR (CKD-EPI)AfAm >90 (>60 ml/min/1.73 sqM) Est GFR (CKD-EPI)NonAf >90 (>60 ml/min/1.73 sqM) Glucose 112 H (74-99) mg/dL Calcium 9.7 (8.4-10.2) mg/dL Magnesium 1.8 (1.6-2.3) mg/dL Total Bilirubin 0.5 (0.2-1.3) mg/dL AST 33 (17-59) U/L ALT 80 H (21-72) U/L Alkaline Phosphatase 51 (38-126) U/L Total Protein 7.2 (6.3-8.2) g/dL Albumin 4.7 (3.5-5.0) g/dL Amylase 64 (30-110) U/L Lipase 282 (23-300) U/L Urine Color Yellow Urine Appearance Cloudy (Clear) Urine pH 6.5 (5.0-8.0) Ur Specific [place] 1.011 (1.001-1.035) Urine Protein Negative (Negative) Urine Glucose (UA) Negative (Negative) Urine Ketones Negative (Negative) Urine Blood Negative (Negative) Urine Nitrite Negative (Negative) Urine Bilirubin Negative (Negative) Urine Urobilinogen <2.0 (<2.0) mg/dL Ur Leukocyte Esterase Negative (Negative) Urine WBC 1 (0-5) /hpf Urine Mucus Many H (None) /hpf Urine Opiates Screen Not Detected (NotDetected) Ur Oxycodone Screen Not Detected (NotDetected) Urine Methadone Screen Not Detected (NotDetected) Ur Propoxyphene Screen Not Detected (NotDetected) Ur Barbiturates Screen Not Detected (NotDetected) U Tricyclic Antidepress Not Detected (NotDetected) Ur Phencyclidine Scrn Not Detected (NotDetected) Ur Amphetamines Screen Not Detected (NotDetected) U Methamphetamines Scrn Not Detected (NotDetected) U Benzodiazepines Scrn Not Detected (NotDetected) Urine Cocaine Screen Not Detected (NotDetected) U Marijuana (THC) Screen Not Detected (NotDetected) Serum Alcohol 229 H* mg/dL - Radiology Data Radiology results: report reviewed (Computed tomography scan of brain reveals no acute process) Disposition Clinical Impression: Unresponsive episode Disposition: HOME SELF-CARE Condition: Stable Instructions (If sedation given, give patient instructions): New-Onset Seizure in Adults (ED), Abuse of Alcohol (ED) Additional Instructions: Wean yourself off of alcohol over the next few days and follow-up with rehab as planned. Return for recurrent seizures, change in mental status, fevers, worsening symptoms or other concerns. Is patient prescribed a controlled substance at d/c from ED?: No Referrals: Ryan Dahl MD [Primary Care Provider] - 1-2 days Time of Disposition: 10:06
--- NOTE | 2018-06-20 08:19 | CT ---
EXAMINATION TYPE: CT brain wo con DATE OF EXAM: 06/20/2018 COMPARISON: 03/15/2017 HISTORY: Seizure CT DLP: 1083.[address] of the brain was performed. The ventricles, basal cisterns and sulci overlying the cerebral convexities demonstrate a normal appe arance. There is no evidence for intracranial hemorrhage or sulcal effacement. No mass effects are seen. Osseous calvarium is intact. If symptoms persist consider MRI as clinically warranted. IMPRESSION: 1. No acute intracranial process is seen at this time.
[2018-06-20 08:24] LABS: Basophils % (A) 1 %; Eosinophils # (A) 0.2 k/uL (0-0.7); Eosinophils % (A) 4 %; HCT 41.4 % (39.0-53.0); HGB 13.8 gm/dL (13.0-17.5); Lymphocytes # (A) 2.1 k/uL (1.0-4.8); Lymphocytes % (A) 47 %; MCH 28.7 pg (25.0-35.0); MCHC 33.3 g/dL (31.0-37.0); MCV 86.1 fL (80.0-100.0); Mean Platelet Volume 7.4; Monocytes # (A) 0.3 k/uL (0-1.0); Monocytes % (A) 7 %; Neutrophils # (A) 1.6 k/uL (1.3-7.7); Neutrophils % (A) 37 %; Platelet Count 313 k/uL (150-450); RDW 13.7 % (11.5-15.5); WBC 4.4 k/uL (3.8-10.6)
[2018-06-20 08:34] LABS: ALT 80 U/L (21-72); AST 33 U/L (17-59); Albumin 4.7 g/dL (3.5-5.0); Alkaline Phosphatase 51 U/L (38-126); Amylase 64 U/L (30-110); Anion Gap 8 mmol/L; Blood Urea Nitrogen 7 mg/dL (9-20); Calcium 9.7 mg/dL (8.4-10.2); Carbon Dioxide 30 mmol/L (22-30); Chloride 111 mmol/L (98-107); Glucose 112 mg/dL (74-99); Lipase 282 U/L (23-300); Magnesium 1.8 mg/dL (1.6-2.3); Potassium 4.2 mmol/L (3.5-5.1); Sodium 149 mmol/L (137-145); Total Bilirubin 0.5 mg/dL (0.2-1.3); Total Protein 7.2 g/dL (6.3-8.2)
[2018-06-20 08:38] LABS: Alcohol 229 mg/dL
[2018-06-20 08:41] LABS: Appearance,Urine Cloudy (Clear); Bilirubin,Urine Negative (Negative); Blood,Urine Negative (Negative); Color,Urine Yellow; Glucose,Urine (UA) Negative (Negative); Ketones,Urine Negative (Negative); Leukocyte Esterase,Urine Negative (Negative); Mucus,Urine Many /hpf; Nitrite,Urine Negative (Negative); PH, Urine 6.5 (5.0-8.0); Protein,Urine Negative (Negative); Specific Gravity,Urine 1.011 (1.001-1.035); Urobilinogen,Urine <2.0 mg/dL (<2.0); WBC,Urine 1 /hpf (0-5)
[2018-06-20 08:42] LABS: Amphetamine Screen,Urine Not Detected (NotDetected); Barbiturate Screen,Urine Not Detected (NotDetected); Benzodiazepines Screen,Urine Not Detected (NotDetected); Cocaine Screen,Urine Not Detected (NotDetected); Methadone Screen, Urine Not Detected (NotDetected); Opiate Screen,Urine Not Detected (NotDetected); Oxycodone Screen, Urine Not Detected (NotDetected); Phencyclidine Screen,Urine Not Detected (NotDetected); Tricyclic Antidepressant,Urine Not Detected (NotDetected); Urn Cannabinoid Scrn Not Detected (NotDetected)
[2018-06-20 10:52] VITALS: BP 138/72; PULSE 98
== END 2018-06-20 10:49 | disposition home or self-care (01) ==
LOC: EC 07:00
DX: R40.20 Unspecified coma (principal); F10.10 Alcohol abuse, uncomplicated
CPT/HCPCS: 99285; 96365; 36415; 93005; 80053; 82150; 83690; 83735; 85025; 81001; 80306; 80320; 70450; J3411